=== PATIENT | male | born 1990 | race Caucasian/White ===

== ENCOUNTER 2017-01-22 13:07 | Emergency (ER) | payer OTHER ==
[2017-01-22 13:15] VITALS: BP 116/73; PULSE 68; TEMP 98.3; BMI 29.2
[2017-01-22] MEDS ORDERED: IBUPROFEN 600 MG TABLET (FP) PO ONE ×2 (13:18→13:21)
--- NOTE | 2017-01-22 13:18 | PDOC ---
History of Present Illness - General Chief Complaint: Injury Stated Complaint: RIGHT 3RD FINGER INJURY Time Seen by Provider: 01/22/17 13:13 History Source: Patient Exam Limitations: No Limitations - History of Present Illness Initial Comments: 26 yo M presents with R 3rd finger pain after a table fell on it just [employer]. He states that he has pain to the R 3rd finger with an open cut. No other injuries. Pain is moderate, throbbing. No active bleeding. He cleaned with peroxide prior to arrival. Cannot recall last tetanus. Past History - Past Medical History Allergies/Adverse Reactions: Allergies Allergy/AdvReac Type Severity Reaction Status Date / Time No Known Allergies Allergy Verified 01/22/17 13:09 Home Medications: Ambulatory Orders Albuterol Sulfate Inhaler - [Ventolin HFA Inhaler -] 1 - 2 inh PO Q4H 05/04/13 Cephalexin Monohydrate [Keflex -] 500 mg PO Q6H #28 capsule 01/22/17 Asthma: Yes - Surgical History Neurologic Surgery: Yes (brain tumor) - Immunization History Immunization Up to Date: Yes - Psycho/Social/Smoking Cessation Hx Anxiety: No Suicidal Ideation: No Smoking Status: No Smoking History: Never smoked Have you smoked in the past 12 months: No Number of Cigarettes Smoked Daily: 0 Information on smoking cessation initiated: No Hx Alcohol Use: No Drug/Substance Use Hx: No Substance Use Type: None Review of Systems - Review of Systems Able to Perform ROS?: Yes Comments:: GENERAL/CONSTITUTIONAL: No fever or chills. No weakness. HEAD, EYES, EARS, NOSE AND THROAT: No change in vision. No ear pain or discharge. No sore throat. MUSCULOSKELETAL: +R 3rd finger pain with laceration. Remainder of extremities with no joint or muscle swelling or pain. No neck or back pain. SKIN: No rash NEUROLOGIC: No headache, vertigo, loss of consciousness, or change in strength/ sensation. *Physical Exam - Vital Signs Last Vital Signs Temp Pulse Resp BP Pulse Ox 98.3 F 68 18 116/73 98 01/22/17 13:08 01/22/17 13:08 01/22/17 13:08 01/22/17 13:08 01/22/17 13:08 - Physical Exam Comments: GENERAL: Awake, alert, and fully oriented, in no acute distress HEAD: No signs of trauma EXTREMITIES: R 3rd finger with tenderness and swelling over the distal phalanx, with a small subcentimeter laceration to the pad of the finger. Remainder of extremities with normal range of motion, no edema. No clubbing or cyanosis. No cords, erythema, or tenderness NEUROLOGICAL: Cranial nerves II through XII grossly intact. Normal speech, normal gait SKIN: Warm, Dry, normal turgor, no rashes. Laceration as noted above. Procedures - Laceration/Wound Repair Right 3rd digit Wound Length: to 2.5 cm Wound Explored: clean, no foreign body present Wound's Depth, Shape: superficial Irrigated w/ Saline: Yes Anesthesia: 1% Lidocaine Amount of Anesthetic (ccs): 3 (local) Wound Debrided: minimal Wound Repaired With: Sutures Suture Size/Type: 5:0, nylon Number of Sutures: 2 Sterile Dressing Applied: Yes Splint Applied: Yes (aluminum-foam splint) *DC/Admit/Observation/Transfer Diagnosis at time of Disposition: Open fracture of distal phalanx - Discharge Dispostion Disposition: HOME Condition at time of disposition: Stable Admit: No - Prescriptions Prescriptions: Cephalexin Monohydrate [Keflex -] 500 mg PO Q6H #28 capsule - Referrals Referrals: Tomas Dinh MD [Staff Physician] - - Patient Instructions Printed Discharge Instructions: DI for Finger Fracture, DI for Laceration Repair -- Finger, DI for Open Fracture Additional Instructions: RETURN TO HAVE STITCHES REMOVED BETWEEN 01/31 AND 02/02. RETURN TO THE ER IMMEDIATELY IF YOU DEVELOP SEVERE PAIN, REDNESS, DRAINAGE OF PUS, OR REDNESS GOING UP YOUR HAND. KEEP STITCHES DRY FOR FIRST 48 HOURS, THEN YOU CAN GET WET. KEEP SPLINT IN PLACE WHEN NOT IN THE SHOWER. DO NOT APPLY ANY LOTIONS, CREAMS, SOAPS, OR OINTMENTS. - Post Discharge Activity Work/School Note: Back to Work
[2017-01-22] MEDS ORDERED: CEPHALEXIN MONOHYDRATE 500 MG CAPSULE (UD) PO ONE (13:41)
[2017-01-22] MEDS ORDERED: CEPHALEXIN MONOHYDRATE 500 MG CAPSULE (UD) ONE (13:49)
[2017-01-22] MEDS ORDERED: DIPHTH,PERTUSS(ACELL),TET VAC 0.5 ML VIAL IM ONE (14:04)
== END 2017-01-22 14:17 | disposition home or self-care (01) ==
LOC: FER 13:07
PROC: 0HQFXZZ Repair Right Hand Skin, External Approach (ICD-10-PCS; principal; 2017-01-22)
PROC: 2W3JX1Z Immobilization of Right Finger using Splint (ICD-10-PCS; 2017-01-22)
DX: S61.212A Laceration without foreign body of right middle finger without damage to nail, initial encounter (principal); S62.662B Nondisplaced fracture of distal phalanx of right middle finger, initial encounter for open fracture; W20.8XXA Other cause of strike by thrown, projected or falling object, initial encounter; Y93.9 Activity, unspecified; Y92.9 Unspecified place or not applicable
CPT/HCPCS: 73140-TC-RT; 99281-25